=== PATIENT | male | born 1980 | race Caucasian/White ===

== ENCOUNTER → 2024-03-03 | Day surgery (SDC) | payer BC ==
[~2024-03-03] MED LIST: HYDROCHLOROTHIA25 MG PO; LACTATED RINGER'S 1,000 ML ONE; LIDOCAINE HCL 2% LOCAL INJ 5 ML SDV VIAL INJ ONE; LOSARTAN POTAS100 MG PO; MIDAZOLAM HCL 2 MG/2 ML VIAL ONE; PROBIOTIC GUMMIES; PROPOFOL IV EMULSION 10 MG/ML 20 ML VIAL ONE; SINGULAIR4 MG PO
[2024-03-03 09:39] VITALS: TEMP 97.1
[2024-03-03 10:20] VITALS: BP 131/71; PULSE 76; RESP 17; O2SAT 97
== END | disposition home or self-care (01) ==
LOC: OR 08:48
PROVIDERS: ATTEND Internal Medicine Gastroenterology
DX: K62.5 Hemorrhage of anus and rectum (principal); D12.2 Benign neoplasm of ascending colon; D12.4 Benign neoplasm of descending colon; K62.89 Other specified diseases of anus and rectum; K57.30 Diverticulosis of large intestine without perforation or abscess without bleeding; K64.8 Other hemorrhoids; I10 Essential (primary) hypertension; Z01.810 Encounter for preprocedural cardiovascular examination; Z79.899 Other long term (current) drug therapy; Z68.38 Body mass index [BMI] 38.0-38.9, adult; Z80.0 Family history of malignant neoplasm of digestive organs
CPT/HCPCS: 45384; 93005; J2001; J2250; J2704; J7121; 45378